=== PATIENT | male | born 2000 | race Caucasian/White ===

== ENCOUNTER 2025-02-25 23:47 | Emergency (ER) | payer OTHER, BC, SELFPAY ==
--- NOTE | ~2025-02-25 | CT_ITS ---
CT of the Abdomen and Pelvis: Indication: Abdominal pain Technique: 2.5 mm axial scans were obtained through the abdomen and pelvis following intravenous adm inistration of 100 cc of Omnipaque 350. Dose reduction technique was used on this scan by utilizing a utomated exposure control and iterative reconstruction technique. The dose-length product (DLP) was 3 37.03 mGy-cm. Findings: Scans through the lung bases are unremarkable. The liver, spleen, pancreas, gallbladder, adrenals and kidneys are within normal limits. No evidence of aortic aneurysm. No lymphadenopathy. No bowel obstruction or bowel wall thickening. There is no evidence to suggest acute appendicitis. Images through the pelvis were performed. Urinary bladder unremarkable. No pelvic mass seen. No ascit es. Impression: No significant abnormalities seen. Reviewed, dictated and finalized at [facility]. Impression: No significant abnormalities seen.
[2025-02-25 23:49] VITALS: BP 122/72; PULSE 48; RESP 16; TEMP 36.6; O2SAT 100
[2025-02-26 02:12] VITALS: BP 129/78; PULSE 52; RESP 17; O2SAT 98
[2025-02-26 02:12] LABS: Basophils Absolute Auto 0.1 K/mm3 (0.0-0.1); Basophils Percent Auto 0.7 % (0.2-1.2); Eosinophils Absolute Auto 0.2 K/mm3 (0-0.3); Eosinophils Percent Auto 2.9 % (0-4.4); Hematocrit 46.9 % (42.0-52.0); Hemoglobin 16.4 g/dL (14.0-18.0); Immature Granulocyte Absolute 0.01 K/mm3 (0.00-0.031); Immature Granulocyte Percent A 0.1 % (0-0.5); Lymphocytes Absolute Auto 2.36 K/mm3 (0.9-3.2); Lymphocytes Percent Auto 28.5 % (18.3-44.2); Mean Corpuscular Hemoglobin 30.7 pg (26-34); Mean Corpuscular Volume 87.7 fl (80-100); Mean Platelet Volume 9.9 fl (7.4-10.4); Monocytes Absolute Auto 0.6 K/mm3 (0.1-0.6); Monocytes Percent Auto 6.8 % (2.6-8.5); Platelet Count Result 214 k/mm3 (150-375); Red Blood Count 5.35 M/mm3 (4.6-6.20); Red Cell Distribution Width 11.9 % (11.5-14.5); White Blood Count 8.3 K/mm3 (4.5-10.0)
[2025-02-26 02:24] LABS: Alanine Aminotransferase 22 U/L (6-50); Albumin Level 4.5 g/dL (3.5-5.1); Alkaline Phosphatase 82 U/L (38-126); Anion Gap 9 mmol/L (4-12); Aspartate Amino Transferase 26 U/L (17-59); Bilirubin,Total 0.6 mg/dL (0.2-1.3); Blood Urea Nitrogen 18 mg/dL (9-20); Calcium 9.6 mg/dL (8.4-10.2); Carbon Dioxide 28 mmol/L (22-30); Chloride 103 mmol/L (98-107); Estimated CRCL calculation 103 ml/min; Estimated Glomerular Filt Rate > 60; Glucose 91 mg/dL (65-110); Lipase 132 U/L (23-300); Sodium 140 mmol/L (137-145)
--- OUTSIDE RECORDS SUMMARY | 2025-02-26 02:26 | XMS_ITS | Encounter Summary ---
Author Organization [facility] Address Count includes the [facility] [place] [address] Care Team Providers Care Orthophotography Technician Name Role Phone Wes Bloom MD Primary Care Provider [phone] Encounter Details Date Type Department Care Team (Late st Contact Info) Description 04/18/2021 [employer] Message Enc [facility] Family Medicine [facility] [address] , [address] [place] [id number] [place], [facility] Provider Lab Results Social History Tobacco Use Types Packs/Day Years Used Date Smoking Tobacco: Never Smokeless Tobacco: Never PHQ-2 Answer Date Recorded PHQ-2 Score 0 10/07/2019 Sex and Gender Information Value Date Recorded Sex Assigned at 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 Sex Male 5:17 PM CDT Gender Identity Male 03/04/2022 11:26 AM CDT Sexual Orientation Straight 03/04/2022 11 :26 AM CDT documented as of this encounter Plan of Treatment Not on file documented as of this encounter Visit Diagnoses Not on filedocumented in this encounter Additional Health Concerns Infection Onset Date Last Indicated Resolved Time COVID-19 Rule Out 10/17/2021 10/17/2021 10/17/2021 2:34 PM DRYCLEANER COVID-19 Rule Out 10/20/2021 10/17/2021 10/21/2021 1:15 AM DRYCLEANER documented as of this encounter Care Teams Orthophotography Technician Relationship Specialty Start Date End Date Wes Bloom MD [address] [facility] [address] [place] [address] PCP - General FAMILY PRACTICE 07/20/19 documented as of this encounter
--- OUTSIDE RECORDS SUMMARY | 2025-02-26 02:26 | XMS_ITS | Clinical Summary ---
Author Organization [facility] Address [facility] [place] [address] Care Team Providers Care Inclusion Manager Name Role Phone Wes Bloom MD Primary Care Provider [phone] Allergies Active Allergy Reactions Criticality Noted Date Comments Peanut Oil Throat swelling 07/20/2019 Medications tamsulosin (FLOMAX) 0.4 MG CapIndications:Be nign prostatic hyperplasia with urinary frequency Take 1 capsule (0.4 mg total) by mouth daily. 90 capsule 3 5 01/25/20 26 Active polyethylene glycol (MIRALAX) 17 GM/SCOOP powderIndications :Chronic idiopathic constipation Take 17 g by mouth daily. Dissolve powder in 240 mL water 578 g 3 5 Active Active Problems Problem Noted Date Diagnosed Date Chronic fatigue 07/01/2022 Primary exertional headache 07/01/2022 Family history of brain tumor 07/01/2022 Non-seasonal allergic rhinitis, unspecified trig brittany 07/01/2022 H/O peanut allergy 07/20/2019 Adolescent idiopathic scoliosis of thoracolumbar region 04/23/2016 Overview (07/20/2019): Overview: 04/23/16 Scoliosis series ordered Lactose intolerance 04/23/2016 Encounters Date Type Department Care Team Description 01/24/2025 2:20 PM CDT Office Visit [facility] - [place] [address] [facility] [address] [facility], [address] [place] [address] Wes Bloom MD Urinary Frequency (Has been having to urinate every 30 min seems like lately, has been having to get up 2-3 times a night. Has been going on for about 2 weeks now and seems to be getting worse with having to go and then feeling like doesn't empty bladder. No issues with burning or anything and is clear. 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 Visit [facility] Family Medicine - [place] [address] [facility], [address] [place] [address] Wes Bloom MD URI/ENT Symptoms (Patient here today for fever, headache, chills and sore throat x 4 days.) 11/30/2024 Travel from Last 3 Months Immunizations Immunization Administration Dates Next Due Dtap 10/21/2005, 2,2001,2001, 001 Hepatitis A (Generic) 06/08/2015,11/29/2013 Hepatitis B Pediatric 05/29/2002,2001,12/2000 Hib Vaccine, Prp-D 05/29/2002,2001, 001 MMR (Generic) 04/22/2013,04/11/2011,03/13/2002 Meningococcal (Menactra) 11/12/2017,11/29/2013 Pneumococcal (Generic) 05/29/2002,2001,,2001 Polio Ipv (Generic) 04/22/2013,03/13/2002,2000,2001 Tdap (Generic) 04/22/2012 Varicella Vaccine 07/10/2008,03/13/2002 Family History Medical History Relation Comments No Known Problems Father Alzheimers Maternal Grandfather Diabetes Maternal Grandmother No Known Problems Mother COPD Paternal Grandfather Heart Disease Paternal Grandfather Hypertension Paternal Grandfather Cancer Paternal Grandmother Relation Status Comments Father Alive Maternal Grandfather Maternal Grandmother Mother Alive Paternal Grandfather Paternal Grandmother Social History Tobacco Use Types Packs/Day Years Used Date Smoking Tobacco: Former Cigars Passive Smoke Exposure: Current Smokeless Tobacco: Never Tobacco Cessation:Counseling Given: Not Answered Comments:I smoke a cigar on occasion Alcohol Use Standard Drinks/Week Comments Yes 10.3 (1 standard drink = 0.6 oz pure alcohol) socially PHQ-2 Answer Date Recorded Patient Health Questionnaire-2 Score 0 11/30/2024 Sex and Gender Information Value Date Recorded Sex Assigned at Male 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 Legal Sex Male 5:17 PM CDT Gender Identity Male 03/04/2022 11:26 AM CDT Sexual Orientation Straight 03/04/2022 11 :26 AM CDT Last Filed Vital Signs Vital Sign Reading Time Taken Comments Blood Pressure 116/68 01/24/2025 2:29 PM CDT Pulse 62 01/24/2025 2:29 PM CDT Temperature 36.4 C (97.6 F) 01/24/2025 2:29 PM CDT Respiratory Rate 16 01/24/2025 2:29 PM CDT Oxygen Saturation 99% 01/24/2025 2:29 PM CDT Inhaled Oxygen Concentration - - Weight 78.7 kg (173 lb 9.6 oz) 01/24/2025 2:29 P M CDT Height 177.8 cm (5' 10 ) 06/24/2022 11:46 AM CDT Body Mass Index 24.91 06/24/2022 11:46 AM CDT Plan of Treatment Health Maintenance Due Date Last Done Comments HPV Vaccines (1 - Male 3-dose series) 2016 Meningococcal B Vaccine (1 of 2 - Standard) 2017 Hepatitis C 2019 Annual Physical 07/20/2020 07/20/2019 DTaP, Tdap and Td Vaccines (7 - Td or Tdap) 04/22/2022 04/22/2012, 10/21/2005, 05/29/2002, Additional history exists COVID-19 Vaccine (3 - season) 2024 02/14/2021, 01/24/2021 Hepatitis B Vaccines Completed 05/29/2002, 2001, 2001 Pneumococcal Vaccine: Pediatrics (0 to 5 Years) and At-Risk Patients (6 to 49 Years) Aged Out 05/29/2002, 2001, 2001, Additional history exists No longer eligible based on patient's age to complete this topic Meningococcal Vaccine Completed 11/12/2017, 014 PHQ-2 (Physician [place]) Completed 11/30/2024 RSV Immunizations Under 20 Months Aged Out No longer eligible based on patient's age to complete this topic Procedures Procedure Name Priority Date/Time Associated Diagnosis Comments URINALYSIS AUTO DIP Routine 01/24/2025 Frequency of urination STREP A RAPID Routine 11/30/2024 Sore throat from Last 3 Months Results * URINALYSIS AUTO DIP (01/24/2025) COLOR (U) YELLOW YELLOW [facility] [place] [place] TRANSPARENCY CLEAR CLEAR [facility] [place] GLUCOSE (U) NEGATIVE NEGATIVE MG/DL [facility] [place] [place] BILIRUBIN (U) NEGATIVE NEGATIVE [facility] [place] [place] KETONES MG/DL (U) NEGATIVE NEGATIVE MG/DL [facility] [place] SPECIFIC GRAVITY (U) 1.010 1.001 - 1.035 [facility] [place] [place] BLOOD (U) NEGATIVE NEGATIVE [facility] [place] U PH 6.0 5.0 - 9.0 [facility] [place] [place] PROTEIN (U) NEGATIVE NEGATIVE mg/dL [facility] [place] [place] UROBILINOGEN 0.2 0.2 - 1.0 EU/dL = mg/dL [facility] [place] [place] NITRITES NEGATIVE NEGATIVE MG/DL [facility] [place] [place] LEUKOCYTES (U) NEGATIVE NEGATIVE [facility] [place] URINE SPECIMEN FROM [facility] / Unknown 01/24/2025 us Wes Bloom MD URINE ORDERABLES Final Result [facility] [place] [place] [address] [place] [address], * STREP A RAPID (11/30/2024) RAPID STREP TEST NEGATIVE NEGATIVE [facility] [place] [place] Internal Control: VALID VALID [facility] [place] [place] STRUCTURE OF ANTERIOR PORTION OF NECK / Unknown 11/30/2024 Wes Bloom MD MICROBIOLOGY - GENERAL ORDERA BLES Final Result [facility] [place] [address] [place] [address], from Last 3 Months Insurance [facility] Care Teams Inclusion Manager Relationship Specialty Start Date End Date Wes Bloom MD [address] [place], [place] [id number] PCP - General FAMILY PRACTICE 07/20/19
[2025-02-26] MEDS: ACETAMINOPHEN 500 MG TABLET 1000 MG PO (03:29)
[2025-02-26 03:36] LABS: Add Urine Microscopic? NO; Appearance Urine Clear (Clear); Bilirubin Urine Negative (Negative); Blood Urine Negative (Negative); Color Urine Yellow (Yellow); Glucose Urine UA Negative (Negative); Ketones Urine Negative (Negative); Leukocyte Esterase Ur Negative LEU/UL (Negative); Nitrate Urine Negative (Negative); Protein Urine Negative (Negative); Specific Grav Ur 1.016 (1.001-1.035); Urobilinogen Urine 0.2 mg/dL (<2.0)
[2025-02-26 04:28] VITALS: BP 121/68; PULSE 50; RESP 17; O2SAT 98
--- NOTE | 2025-02-26 05:02 | ED_ITS ---
HPI - Abdominal Pain General Chief Complaint: Abdominal Pain Stated Complaint: abdominal pain Time Seen by Provider: 02/26/25 02:03 Source: patient Mode of arrival: ambulatory Limitations: no limitations History of Present Illness HPI narrative: This is a 24-year-old male, with no significant past medical history, presents to the emergency department complaining of lower abdominal pain. The patient states 1 week ago he thought he pulled something in the left flank. He rated his pain mild to moderate described as cramping. It then radiated to the right lower quadrant. He continues to be in [id number] though more sharp. He denies nausea, vomiting, bleeding of any kind, fevers, chest pain shortness of breath. He has no other complaints at this time. Related Data Allergies Allergy/AdvReac Type Severity Reaction Status Date / Time peanuts Allergy Swelling Uncoded 02/25/25 23:49 Review of Systems 2 Review of Systems: All systems reviewed & are unremarkable except as noted in HPI and below PMFSH Past Medical History Medical History No significant past medical history Surgical History Surgical History No significant past surgical history Social History Social History Smoking status: Never smoker Alcohol intake: never Substance use: never Exam 2 Narrative: GENERAL: Well-developed, well-nourished, and in no acute distress. HEAD: Normocephalic, atraumatic. EYES: PERRLA and EOMI. CHEST: Clear to auscultation. No respiratory distress. No wheezes rales or rhonchi HEART: Regular rate and rhythm. No murmur heard. Normal peripheral pulses. ABDOMEN: Soft, right lower quadrant tenderness to palpation, no rebound or guarding, nondistended, normal active bowel sounds. No CVAT EXTREMITIES: Normal range of motion. No edema. SKIN: Warm, dry, no rash. NEURO: Alert and oriented x3. No focal deficit. Moving all 4 limbs spontaneously PSYCH: Normal mood and affect. Course Course Emergency Course: 05:05 - CBC unremarkable. Chemistries within normal limits. Urinalysis unremarkable. STAT Rad interpretation of CT abdomen pelvis demonstrates ?a normal gas-filled appendix is noted extending superiorly from the cecum in the right lower quadrant measuring 5 mm without evidence for abnormal periappendiceal inflammatory changes. There are no other noted abnormalities aside from prominent stool burden. I suspect the patient's pain is musculoskeletal in nature. Will discharge with pain medications and recommendation for primary care follow-up. I discussed the findings and recommendations with the patient. Discussed return and emergency precautions including signs/symptoms of acute abdomen and intractable vomiting. The patient voiced understanding and agreement with the plan. All questions answered to his satisfaction. Vital Signs Vital signs: Vital Signs Temperature 98 F 02/25/25 23:49 Pulse Rate 48 L 02/25/25 23:49 Respiratory Rate 16 02/25/25 23:49 Blood Pressure 122/72 02/25/25 23:49 Pulse Oximetry 100 02/25/25 23:49 Oxygen Delivery Room Air 02/25/25 23:49 Temperature 98 F 02/25/25 23:49 Pulse Rate 50 L 02/26/25 04:28 Respiratory Rate 17 02/26/25 04:28 Blood Pressure 121/68 02/26/25 04:28 Pulse Oximetry 98 02/26/25 04:28 Oxygen Delivery Room Air 02/25/25 23:49 MDM - Abdominal Pain MDM Narrative Medical decision making narrative: Plan: Imaging, pain control, labs, reassess Differential Diagnosis Differential diagnosis: Likely acute appendicitis, calculus of kidney, constipation, diverticulitis, gastroenteritis, small bowel obstruction and other (Bowel perforation, UTI, other) Lab Data 02/26/25 02:05 02/26/25 02:05 Labs: Lab Results 02/26/25 02/26/25 Range/Units 02:05 03:30 WBC 8.3 (4.5-10.0) K/mm3 RBC 5.35 (4.6-6.20) M/mm3 Hgb 16.4 (14.0-18.0) g/dL Hct 46.9 (42.0-52.0) % MCV 87.7 (80-100) fl MCH 30.7 (26-34) pg MCHC 35.0 (32-36) g/dl RDW 11.9 (11.5-14.5) % Plt Count 214 (150-375) k/mm3 MPV 9.9 (7.4-10.4) fl Immature Gran % (Auto) 0.1 (0-0.5) % Neut % (Auto) 61.0 (45.5-73.1) % Lymph % (Auto) 28.5 (18.3-44.2) % [place] % (Auto) 6.8 (2.6-8.5) % Eos % (Auto) 2.9 (0-4.4) % Baso % (Auto) 0.7 (0.2-1.2) % Lymph # (Auto) 2.36 (0.9-3.2) K/mm3 [place] # (Auto) 0.6 (0.1-0.6) K/mm3 Eos # (Auto) 0.2 (0-0.3) K/mm3 Baso # (Auto) 0.1 (0.0-0.1) K/mm3 Abs Immat Gran (auto) 0.01 (0.00-0.031) K/mm3 Absolute Neuts (auto) 5.0 (1.3-6.7) K/mm3 Absolute Nucleated RBC 0.000 (0.0-0.012) K/mm3 Nucleated RBC % 0.0 (0.0-0.2) % Sodium 140 (137-145) mmol/L Potassium 4.0 (3.4-5.0) mmol/L Chloride 103 (98-107) mmol/L Carbon Dioxide 28 (22-30) mmol/L Anion Gap 9 (4-12) mmol/L BUN 18 (9-20) mg/dL Creatinine 0.98 (0.7-1.3) mg/dL Estim Creat Clear Calc 103 ml/min Estimated GFR > 60 (59 - ) Glucose 91 (65-110) mg/dL Calcium 9.6 (8.4-10.2) mg/dL Total Bilirubin 0.6 (0.2-1.3) mg/dL AST 26 (17-59) U/L ALT 22 (6-50) U/L Alkaline Phosphatase 82 (38-126) U/L Total Protein 7.0 (6.3-8.2) g/dL Albumin 4.5 (3.5-5.1) g/dL Lipase 132 (23-300) U/L Urine Color Yellow (Yellow) Urine Appearance Clear (Clear) Urine pH 6.0 (5.0-9.0) Ur Specific [place] 1.016 (1.001-1.035) Urine Protein Negative (Negative) mg/dL Urine Glucose (UA) Negative (Negative) mg/dL Urine Ketones Negative (Negative) mg/dL Ur Blood (Man) Negative (Negative) Urine Nitrate Negative (Negative) Urine Bilirubin Negative (Negative) Urine Urobilinogen 0.2 (<2.0) mg/dL Leukocyte Esterase Rfl Negative (Negative) NARESH/UL Discharge Plan Discharge Clinical Impression: Abdominal pain, right lower quadrant, Abdominal wall strain Patient Disposition: Home Condition: Stable Instructions: Antibiotic Form, Abdominal Pain (ED) Additional Instructions: You were seen in the emergency department. Your labs are not concerning for liver or kidney injury. A urinalysis was not concerning for urinary tract infection. I scanned the abdomen was not concerning for appendicitis or other acute infection or bowel injury. It did show changes consistent with constipation. I recommend Tylenol/ibuprofen as needed for pain. If you develop new or worsening abdominal pain, abdominal pain with fevers, persistent vomiting, bleeding, or if you have other emergent concerns for life, limb, or eyesight, return to the emergency department. Patient Language: Sinhala Follow-up/Referrals: Merle,Wes Lebron MD [Primary Care Provider] - 2 Weeks Time of Disposition: 05:11
[2025-02-26 05:20] VITALS: BP 106/74; PULSE 44; RESP 17; O2SAT 98
== END 2025-02-26 05:26 | disposition home or self-care (01) ==
PROVIDERS: Emergency Provider Preventive Medicine Aerospace Medicine; PCP Family Medicine
DX: R10.31 Right lower quadrant pain (principal); S39.011A Strain of muscle, fascia and tendon of abdomen, initial encounter; X58.XXXA Exposure to other specified factors, initial encounter
CPT/HCPCS: 36415; 74177; 80053; 81003; 83690; 85025; 99284; A9270; Q9967